=== PATIENT | female | born 1985 ===

== ENCOUNTER 2018-03-12 01:08 | Emergency (ER) | payer MEDICAID, OTHER ==
[~2018-03-12] VITALS: Ht 167.6 cm; Wt 59.1 kg
[2018-03-12] MEDS ORDERED: bacitracin 15gm ointment TP ONE (01:10)
[2018-03-12] MEDS ORDERED: TETanus/Pertussis (Acell)/Diphther VAC/PF (Tdap-Adult) 0.5ml syringe IM ONE (01:10)
[2018-03-12] MEDS ORDERED: LIDOcaine 1.5% w/epinephrine 1:200,000 5ml ampul IJ ONE (01:10)
[2018-03-12 01:38] VITALS: BP 101/77
[2018-03-12] MEDS ORDERED: LORazepam 2 mg/ml vial IM ONE (02:00)
== END 2018-03-12 03:21 | disposition home or self-care (01) ==
LOC: ER 01:09
DX: S41.112A Laceration without foreign body of left upper arm, initial encounter (principal); S41.111A Laceration without foreign body of right upper arm, initial encounter; S81.012A Laceration without foreign body, left knee, initial encounter; S81.011A Laceration without foreign body, right knee, initial encounter; F10.129 Alcohol abuse with intoxication, unspecified; Y08.89XA Assault by other specified means, initial encounter; Y93.89 Activity, other specified; Y92.89 Other specified places as the place of occurrence of the external cause; Y99.8 Other external cause status; Y90.9 Presence of alcohol in blood, level not specified
CPT/HCPCS: 12001; 90471; 90715; 96372; 99284; A6255; A6449; J2060; J3490